=== PATIENT | female | born 1955 | race African-American/Black ===

== ENCOUNTER 2019-01-17 09:16 | Emergency (ER) | payer OTHER ==
[~2019-01-17] VITALS: Ht 154.9 cm; Wt 70.3 kg
--- NOTE | 2019-01-17 09:23 | NUR ---
[id number] c/o left knee, ankle and R arm pain s/p tripped and fall, -ko. On room air, breathing evenly and unlabored. kept comfortable, will continue to monitor accordingly.
[2019-01-17] MEDS ORDERED: ACETAMINOPHEN 325 MG TABLET ONE (09:27)
[2019-01-17] MEDS ORDERED: IBUPROFEN 400 MG TABLET ONE (09:27)
[2019-01-17] MEDS ORDERED: ACETAMINOPHEN 325 MG TABLET PO ONE (09:30)
[2019-01-17] MEDS ORDERED: IBUPROFEN 400 MG TABLET PO ONE (09:30)
[2019-01-17] MEDS ORDERED: HYDROCODONE/APAP 5/325MG 1 EACH TABLET PO ONE (11:00)
[2019-01-17] MEDS ORDERED: HYDROCODONE/APAP 5/325MG 1 EACH TABLET ONE (11:02)
--- NOTE | 2019-01-17 13:54 | NUR ---
[facility] ETA 1600
[2019-01-17 16:00] VITALS: BP 145/89
--- NOTE | 2019-01-17 16:18 | NUR ---
pt left via private ambulance, per pt, she is unable to bear weight on her left leg, pt left in stable condition, vsradha, nad noted, -sob, report given to ambulance staff.
== END 2019-01-17 16:19 | disposition home or self-care (01) ==
LOC: ER 09:18
DX: S82.892A Other fracture of left lower leg, initial encounter for closed fracture (principal); M79.601 Pain in right arm; I10 Essential (primary) hypertension; E11.9 Type 2 diabetes mellitus without complications; Z98.890 Other specified postprocedural states; W01.0XXA Fall on same level from slipping, tripping and stumbling without subsequent striking against object, initial encounter; Y93.01 Activity, walking, marching and hiking; Y92.218 Other school as the place of occurrence of the external cause; Y99.8 Other external cause status
CPT/HCPCS: 73060-TC; 73090-TC; 73564-TC; 73610-TC

== ENCOUNTER 2019-02-09 15:53 | Emergency (ER) | payer OTHER ==
--- NOTE | 2019-02-09 16:08 | NUR ---
called - no answer
--- NOTE | 2019-02-09 17:08 | NUR ---
Called No response
--- NOTE | 2019-02-09 17:30 | NUR ---
Called NO response-Goldy
[2019-02-10] MEDS ORDERED: ACETAMINOPHEN 325 MG TABLET ONE (05:51)
[2019-02-10] MEDS ORDERED: IBUPROFEN 600 MG TABLET PO ONE (05:51)
== END 2019-02-09 18:01 | disposition left against medical advice (07) ==
LOC: ER 15:53
DX: Z53.21 Procedure and treatment not carried out due to patient leaving prior to being seen by health care provider (principal)

== ENCOUNTER 2019-02-10 05:17 | Emergency (ER) | payer OTHER ==
[~2019-02-10] VITALS: Ht 154.9 cm; Wt 72.6 kg
--- NOTE | 2019-02-10 05:45 | NUR ---
RADIOLOGY AT BEDSIDE FOR XRAY
[2019-02-10] MEDS ORDERED: IBUPROFEN 600 MG TABLET PO ONE (06:00)
[2019-02-10] MEDS ORDERED: ACETAMINOPHEN 650 MG/20.3 ML UDC PO ONE (06:00)
--- NOTE | 2019-02-10 06:01 | NUR ---
PT CAME TO ER BED 3 C/O LEFT ANKLE PAIN AND LEFT KNEE PAIN. PT WAS PREVIOUSLY HERE AND DISCHARGED WITH CRUTCHES, BUT THE PARAMEDICS LEFT HER CRUTCHES IN ER. PATIENT HAS BEEN BEARING WEIGHT ON HER LEFT LEG. AAOX4. NO SOB. BREATHING EVENLY AND UNLABORED.
--- NOTE | 2019-02-10 06:21 | NUR ---
PATIENT TAKEN TO CT
--- NOTE | 2019-02-10 06:31 | NUR ---
PATIENT RETURNED FROM CT
--- NOTE | 2019-02-10 07:17 | NUR ---
patient ambulates steadily with 3-point gait with walker to the restroom
[2019-02-10 07:49] VITALS: BP 132/87
== END 2019-02-10 07:49 | disposition home or self-care (01) ==
LOC: ER 05:21
DX: M25.572 Pain in left ankle and joints of left foot (principal); M54.42 Lumbago with sciatica, left side; I10 Essential (primary) hypertension; E11.9 Type 2 diabetes mellitus without complications; Z98.890 Other specified postprocedural states
CPT/HCPCS: 72131-TC; 73610-TC

== ENCOUNTER 2019-03-09 10:45 | Emergency (ER) | payer OTHER ==
[~2019-03-09] VITALS: Ht 154.9 cm; Wt 72.6 kg
--- NOTE | 2019-03-09 10:49 | NUR ---
Pt called to triage, pt not in waiting room.
--- NOTE | 2019-03-09 10:55 | NUR ---
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 Patient a/ox4, breathing even and unlabored, no sob noted, needs attended, kept comfortable.
[2019-03-09 11:32] LABS: BASOPHILS # (AUTO) 0.1 /CMM (0.0-0.2); BASOPHILS % (AUTO) 1.1 % (0.0-2.0); EOSINOPHILS % (AUTO) 4.4 % (0.0-6.0); HEMATOCRIT 40 % (33-45); LYMPHOCYTES # (AUTO) 1.5 /CMM (0.8-4.8); LYMPHOCYTES % (AUTO) 25.5 % (20.0-44.0); MEAN CORPUSCULAR HGB CONC 33 g/dl (31.0-36.0); MEAN CORPUSCULAR VOLUME 88 fL (82-100); MONOCYTES # (AUTO) 0.5 /CMM (0.1-1.30); NEUTROPHILS # (AUTO) 3.6 /CMM (1.8-8.9); PLATELET COUNT (AUTO) 185 /CMM (150-450); RED BLOOD CELL COUNT(AUTO) 4.53 MIL/uL (4.0-5.2); WHITE BLOOD COUNT (AUTO) 5.8 K/uL (4.3-11.0)
--- NOTE | 2019-03-09 11:38 | NUR ---
PATIENT REFUSED TO HAVE CT SCAN. DR. GAY MADE AWARE.
[2019-03-09 11:41] LABS: CALCIUM, SERUM 9.6 mg/dL (8.5-10.1); CARBON DIOXIDE 32 mmol/L (21-32); CHLORIDE 106 mmol/L (98-107); CREATININE 0.7 mg/dL (0.6-1.3); GLUCOSE 116 mg/dL (74-106); POTASSIUM 3.9 mmol/L (3.5-5.1); SODIUM SERUM 141 mmol/L (136-145); UREA NITROGEN, BLOOD 16 mg/dL (7-18)
[2019-03-09 11:47] LABS: ALANINE AMINOTRANSFERASE 27 U/L (12-78); ALBUMIN 3.6 g/dL (3.4-5.0); ALKALINE PHOSPHATASE 97 U/L (46-116); ASPARTATE AMINOTRANSFERASE 26 U/L (15-37); BILIRUBIN,TOTAL 0.2 mg/dL (0.2-1.0); TOTAL PROTEIN, SERUM 8.2 g/dL (6.4-8.2)
[2019-03-09 12:09] VITALS: BP 142/80
--- NOTE | 2019-03-09 12:09 | NUR ---
Patient discharged to home in stable condition. Written and verbal after care instructions given. Patient verbalizes understanding of instruction.
== END 2019-03-09 12:10 | disposition home or self-care (01) ==
LOC: ER 10:46
DX: R55 Syncope and collapse (principal); I10 Essential (primary) hypertension; E11.9 Type 2 diabetes mellitus without complications; Z98.890 Other specified postprocedural states
CPT/HCPCS: 36415; 71045-TC; 80048-TC; 80076-TC; 84484-TC; 85025-TC

== ENCOUNTER 2023-09-16 10:21 | Inpatient (IN) | payer MEDICARE, OTHER ==
[~2023-09-16] VITALS: Ht 157.5 cm; Wt 74.8 kg
[2023-09-16 11:55] LABS: BASOPHILS # (AUTO) 0.1 K/uL (0.0-0.2); BASOPHILS % (AUTO) 1.2 % (0.0-2.0); EOSINOPHILS # (AUTO) 0.6 K/uL (0.0-0.7); EOSINOPHILS % (AUTO) 7.4 % (0.0-6.0); HEMATOCRIT 35 % (33-45); HEMOGLOBIN 11.4 g/dL (11.5-14.8); LYMPHOCYTES # (AUTO) 1.6 K/uL (0.8-4.8); LYMPHOCYTES % (AUTO) 19.8 % (20.0-44.0); MEAN CORPUSCULAR HEMOGLOBIN 28 PG (26.0-33.0); MEAN CORPUSCULAR HGB CONC 33 g/dl (31.0-36.0); MEAN CORPUSCULAR VOLUME 84 fL (82-100); MONOCYTES # (AUTO) 0.7 K/uL (0.1-1.30); MONOCYTES % (AUTO) 8.6 % (2.0-12.0); NEUTROPHILS # (AUTO) 5.1 K/uL (1.8-8.9); PLATELET COUNT (AUTO) 280 K/uL (150-450); RED BLOOD CELL COUNT(AUTO) 4.14 MIL/uL (4.0-5.2); WHITE BLOOD COUNT (AUTO) 8.1 K/uL (4.3-11.0)
[2023-09-16 12:26] LABS: CALCIUM, SERUM 9.4 mg/dL (8.5-10.1); CARBON DIOXIDE 30 mmol/L (21-32); CHLORIDE 105 mmol/L (98-107); CREATININE 0.5 mg/dL (0.6-1.3); GLUCOSE 108 mg/dL (74-106); NT-PRO BNP 137 pg/mL (0-125); POTASSIUM 4.2 mmol/L (3.5-5.1); SODIUM SERUM 142 mmol/L (136-145); UREA NITROGEN, BLOOD 5 mg/dL (7-18)
[2023-09-16] MEDS ORDERED: CT SWABBABLE VALVE TRANS SET 1 EA INFUS.SET MC ONE (13:22)
[2023-09-16] MEDS ORDERED: ALBUTEROL FS 2.5 MG/3 ML VIAL.NEB ONE (13:22)
[2023-09-16] MEDS ORDERED: IV NS 0.9% 250 ML IV ONE (13:22)
[2023-09-16] MEDS ORDERED: IOHEXOL-350 100 ML VIAL IV ONE (13:22)
[2023-09-16 13:25] VITALS: O2SAT 96
[2023-09-16] MEDS: ALBUTEROL FS 2.5 MG/3 ML VIAL.NEB NEB ONE (13:25)
[2023-09-16 13:40] VITALS: O2SAT 100
[2023-09-16] MEDS ORDERED: ACET250T3 PO (14:23)
[2023-09-16] MEDS ORDERED: DORZ10DR11 LEFTEYE (14:23)
[2023-09-16] MEDS ORDERED: OLAN5TAB3 PO (14:23)
[2023-09-16] MEDS ORDERED: MAGNESIUM HYDROXIDE 30 ML UDC PO PRN (16:00)
[2023-09-16] MEDS ORDERED: ACETAMINOPHEN 325 MG TABLET PO PRN (16:00)
[2023-09-16] MEDS ORDERED: ONDANSETRON HCL/PF 4 MG/2 ML VIAL IVP PRN (16:00)
[2023-09-16] MEDS ORDERED: MORPHINE SULFATE INJ 2 MG/ML DISP.SYRIN IV PRN (16:00)
[2023-09-16] MEDS ORDERED: DEXTROSE 50%-WATER 50 ML DISP.SYRIN IV PRN (16:00)
[2023-09-16] MEDS ORDERED: HYDROCODONE/APAP 5/325MG TABLET PO PRN (16:00)
[2023-09-16] MEDS ORDERED: ALBUTEROL FS 2.5 MG/3 ML VIAL.NEB NEB PRN (16:00)
[2023-09-16] MEDS ORDERED: Z GUARD REMEDY 4 OZ OINT TP PRN (16:00)
[2023-09-16 17:10] VITALS: BP 150/87; TEMP 98.7; O2SAT 96
[2023-09-16] MEDS: ENOXAPARIN SODIUM 40 MG/0.4 ML DISP.SYRIN SQ SCH (17:18)
[2023-09-16] MEDS: BLOOD SUGAR DIAGNOSTIC 1 EACH STRIP IN SCH (17:20)
[2023-09-16 20:00] VITALS: BP 149/85; TEMP 97.9; O2SAT 96
[2023-09-16] MEDS: INSULIN REGULAR, HUMAN 100 UNIT/ML 3 ML VIAL SQ PRN (21:34)
[2023-09-16] MEDS ORDERED: ZOLPIDEM TARTRATE 5 MG TABLET PO PRN (22:00)
[2023-09-17] VITALS: BP 137/74; TEMP 98.1; O2SAT 98
[2023-09-17 04:00] VITALS: BP 124/73; TEMP 98.1; O2SAT 96
[2023-09-17] MEDS: MAG HYDROX/AL HYDROX/SIMETH 30 ML UDC PO PRN (04:05)
[2023-09-17 07:19] LABS: BASOPHILS # (AUTO) 0.1 K/uL (0.0-0.2); BASOPHILS % (AUTO) 1.2 % (0.0-2.0); EOSINOPHILS # (AUTO) 0.6 K/uL (0.0-0.7); EOSINOPHILS % (AUTO) 8.2 % (0.0-6.0); HEMATOCRIT 34 % (33-45); HEMOGLOBIN 11.4 g/dL (11.5-14.8); LYMPHOCYTES # (AUTO) 1.4 K/uL (0.8-4.8); LYMPHOCYTES % (AUTO) 18.1 % (20.0-44.0); MEAN CORPUSCULAR HEMOGLOBIN 28 PG (26.0-33.0); MEAN CORPUSCULAR HGB CONC 34 g/dl (31.0-36.0); MEAN CORPUSCULAR VOLUME 84 fL (82-100); MONOCYTES # (AUTO) 0.6 K/uL (0.1-1.30); MONOCYTES % (AUTO) 8.4 % (2.0-12.0); NEUTROPHILS # (AUTO) 4.9 K/uL (1.8-8.9); NEUTROPHILS % (AUTO) 64.1 % (43.0-81.0); PLATELET COUNT (AUTO) 279 K/uL (150-450); RED BLOOD CELL COUNT(AUTO) 4.04 MIL/uL (4.0-5.2); RED CELL DISTRIBUTION WIDTH 14.9 % (11.5-15.0); WHITE BLOOD COUNT (AUTO) 7.7 K/uL (4.3-11.0)
[2023-09-17] MEDS: PANTOPRAZOLE 40 MG TABLET.DR PO SCH (07:37)
[2023-09-17 07:43] LABS: CALCIUM, SERUM 9.4 mg/dL (8.5-10.1); CREATININE 0.5 mg/dL (0.6-1.3); MAGNESIUM 1.9 mg/dL (1.8-2.4); PHOSPHORUS 3.8 mg/dL (2.5-4.9); POTASSIUM 3.8 mmol/L (3.5-5.1)
[2023-09-17 08:00] VITALS: BP 124/86; TEMP 98.2; O2SAT 100
[2023-09-17 08:02] LABS: THYROID STIMULATING HORMONE 1.88 uIU/mL (0.358-3.74)
[2023-09-17] MEDS: ATORVASTATIN 40 MG TABLET PO SCH (08:42)
[2023-09-17] MEDS ORDERED: APIX5TAB4 PO ×2 (12:59)
[2023-09-17] MEDS ORDERED: TIMOLOL MAL/DORZOLAM HCL OPHTH 10 ML BOTTLE LEFTEYE SCH (17:00)
[2023-09-17] MEDS ORDERED: acetaZOLAMIDE 250 MG TABLET PO SCH (17:00)
[2023-09-17] MEDS ORDERED: ENOXAPARIN SODIUM 80 MG/0.8 ML DISP.SYRIN SQ SCH (21:00)
[2023-09-17] MEDS ORDERED: OLANZAPINE 5 MG TABLET PO SCH (22:00)
== END 2023-09-17 15:02 | disposition home or self-care (01) | DRG 176 ==
LOC: ER 10:43 → TELE1 16:08 → MEDSG1 09-17 11:21
PROVIDERS: ADMIT Nurse Practitioner Acute Care; ATTEND Nurse Practitioner Acute Care
DX: I26.99 Other pulmonary embolism without acute cor pulmonale (principal); I82.412 Acute embolism and thrombosis of left femoral vein; E11.9 Type 2 diabetes mellitus without complications; I10 Essential (primary) hypertension; E66.9 Obesity, unspecified; J45.909 Unspecified asthma, uncomplicated; Z83.3 Family history of diabetes mellitus; Z91.041 Radiographic dye allergy status; Z68.30 Body mass index [BMI] 30.0-30.9, adult
CPT/HCPCS: 36415; 71045-TC; 78582; 80048-TC; 80061-TC; 82962-TC; 83735-TC; 83880; 84100-TC; 84443-TC; 84484-TC; 85025-TC; 85378-TC; 87081-TC; 93307-TC; 93970-TC; A9540; A9567; G0378; J1650; J1815; J7050; Q9967